=== PATIENT | female | born 1990 | race Caucasian/White ===

== ENCOUNTER 2020-02-12 18:50 | Emergency (ER) | payer BC ==
[~2020-02-12] VITALS: Ht 157.5 cm; Wt 84.4 kg
[2020-02-12 19:17] LABS: BASOPHILS ABSOLUTE AUTO 0.07 K/mm3 (0.00-0.23); BASOPHILS PERCENT AUTO 1 % (0-2); EOSINOPHILS ABSOLUTE AUTO 0.33 K/mm3 (0.00-0.68); EOSINOPHILS PERCENT AUTO 2 % (0-6); Hemoglobin 14.1 g/dL (11.5-16.0); IMMATURE GRAN ABSOLUTE AUTO 0.05 K/mm3 (0.00-0.10); IMMATURE GRAN PERCENT AUTO 0 % (0-1); LYMPHOCYTES ABSOLUTE AUTO 1.96 K/mm3 (0.84-5.20); LYMPHOCYTES PERCENT AUTO 15 % (21-46); MONOCYTES PERCENT AUTO 5 % (4-13); Mean Corpuscular HGB 31.4 pg (26.0-34.0); Mean Corpuscular HGB Conc 35.3 g/dL (31.5-36.5); Mean Corpuscular Volume 89 fL (80-100); Mean Platelet Volume 8.4 fL (9.1-12.4); NEUTROPHILS PERCENT AUTO 77 % (41-73); Platelet Count 266 K/mm3 (150-400); RDW Coefficient Variation 11.4 % (11.7-14.2); RDW Standard Deviation 36.5 fL (35.1-46.3); Red Blood Cell Count 4.49 M/mm3 (3.80-5.20); White Blood Cell Count 13.51 K/mm3 (4.00-11.30)
[2020-02-12 19:35] LABS: Anion Gap 10 mmol/L (6-16); Blood Urea Nitrogen 14 mg/dL (8-24); CO2, Blood 20 mmol/L (21-32); Calcium, Blood 9.7 mg/dL (8.5-10.1); Chloride, Blood 109 mmol/L (98-108); Creatinine, Blood 0.61 mg/dL (0.40-1.00); Glomerular Filtration Rate >60 (60-); Glucose, Blood 99 mg/dL (70-99); Potassium, Blood 3.7 mmol/L (3.5-5.5); Sodium, Blood 139 mmol/L (136-145)
[2020-02-12] MEDS ORDERED: AMOCLA875 PO (20:44)
[2020-02-12] MEDS ORDERED: Percocet 5-3251 EACH PO (20:44)
== END 2020-02-12 21:37 | disposition home or self-care (01) ==
LOC: ER 18:50
PROVIDERS: Physician Assistant
DX: S61.250A Open bite of right index finger without damage to nail, initial encounter (principal); S51.852A Open bite of left forearm, initial encounter; L03.114 Cellulitis of left upper limb; L03.011 Cellulitis of right finger; Z23 Encounter for immunization; W55.01XA Bitten by cat, initial encounter
CPT/HCPCS: 80048; 85025; 90471; 90714; 96365; 96375; 99283-25; A9270; J1885; J2543

== ENCOUNTER 2022-02-22 21:52 | Emergency (ER) | payer BC ==
[~2022-02-22] VITALS: Ht 157.5 cm; Wt 81.7 kg
[~2022-02-22 21:52] MED LIST: AMOCLA875 PO; Percocet 5-3251 EACH PO
[2022-02-22] MEDS ORDERED: Atarax10 MG PO (22:13)
[2022-02-22] MEDS ORDERED: BUPROPION HCL200 M1 PO (22:13)
[2022-02-22] MEDS ORDERED: Ventolin/Prove6.7 GM INH (22:14)
== END 2022-02-22 23:30 | disposition home or self-care (01) ==
LOC: ER 21:52
DX: S05.02XA Injury of conjunctiva and corneal abrasion without foreign body, left eye, initial encounter (principal); W45.8XXA Other foreign body or object entering through skin, initial encounter
CPT/HCPCS: A9270; J1885